=== PATIENT | male | born 1975 | race Hispanic/Latino ===

== ENCOUNTER 2017-12-11 20:29 | Emergency (ER) | payer OTHER, SELFPAY ==
[2017-12-11] MEDS ORDERED: Ketorolac Tromethamine 30 MG/ML VIAL ONE (21:32)
[2017-12-11] MEDS ORDERED: Ondansetron PF 4 MG/2 ML Vial ONE (21:32)
[2017-12-11 21:56] LABS: #Basophils 0.1 thou/uL (0.0-0.2); #Eosinphils 0.2 thou/uL (0.0-0.7); #Lymphocytes 2.6 thou/uL (1.20-3.40); #Monocytes 1.1 thou/uL (0.11-0.59); %Basophils 0.4 % (0.0-1.0); %Eosinophils 0.9 % (0.0-10.0); %Lymphocytes 15.5 % (21.0-51.0); %Monocytes 6.5 % (0.0-10.0); %Neutrophils 76.7 % (42.0-75.0); Mean Corpuscular HGB CONC 33.5 g/dL (32.0-36.0); Mean Corpuscular Hemoglobin 29.8 pg (27.0-31.0); Mean Corpuscular Volume 88.7 fL (78.0-98.0); Mean Platelet Volume 7.6 fL (7.4-10.4); Platelet Count 331 thou/uL (130-400); RBC Distribution Width 12.6 % (11.5-14.5); Red Blood Cell (RBC) Count 5.39 mill/uL (4.70-6.10)
[2017-12-11 22:29] LABS: ALT (SGPT) 33 U/L (8-55); AST (SGOT) 32 U/L (5-34); Albumin 4.2 g/dL (3.5-5.0); Alkaline Phosphatase 109 U/L (40-150); Anion Gap 12 mmol/L (10-20); BUN (Urea Nitrogen) 10 mg/dL (8.9-20.6); Bilirubin, Total 0.8 mg/dL (0.2-1.2); Calc. Creatinine Clearance 0 mL/min (70-130); Calcium 9.5 mg/dL (7.8-10.44); Carbon Dioxide 26 mmol/L (22-29); Chloride 100 mmol/L (98-107); Estimated GFR-MDRD 88; Globulin 4.1 g/dL (2.4-3.5); Glucose 88 mg/dL (70-105); Lipase 9 U/L (8-78); Potassium 4.9 mmol/L (3.5-5.1); Protein, Total 8.3 g/dL (6.0-8.3); Sodium 133 mmol/L (136-145)
[2017-12-11] MEDS ORDERED: metroNIDAZOLE 500 MG/100 ML BAG ONE (23:09)
[2017-12-11 23:45] LABS: Bilirubin Negative (Negative); Blood, Urine Negative (Negative); Clarity CLEAR (Clear); Glucose, Urine (Dipstick) Negative (Negative); Leukocyte Negative (Negative); Nitrite Negative (Negative); Protein, Urine (Dipstick) Negative (Neg-Trace); Specific Gravity, Urine 1.011 (1.002-1.036); Urobilinogen 0.2 mg/dL (0.2-1.0)
--- NOTE | 2017-12-12 13:54 | CT ---
NONCONTRAST CT ABDOMEN AND PELVIS: 12/11/17 HISTORY: Diffuse abdominal pain. Abdominal pain is greater on the left. History of kidney stones. COMPARISON: 09/24/15. FINDINGS: There is bibasilar atelectasis. Lack of intravenous contrast limits sensitivity for evaluation of the parenchymal organs. There is in creased density focus seen within the superior pole right kidney which may represent a cortically bas ed calcification. This is stable from prior exam. No additional renal or ureteral calculi are seen bi laterally and there is no evidence of hydronephrosis. The previously seen right UVJ calculus is no lo nger identified. The liver, spleen, pancreas, bilateral adrenal glands, and urinary bladder demonstrate a grossly norm al nonenhanced CT appearance. The appendix is visualized and normal in caliber. There is colonic diverticulosis involving the descending colon. There is a focal area of colonic wall thickening and associated pericolonic inflammatory changes involving the proximal descending colon l ikely attributable to diverticulitis. There is no free intraperitoneal gas seen and no fluid collecti on is identified to suggest an abscess. No other interval change. IMPRESSION: 1. Diverticulitis involving the sigmoid colon. However, followup evaluation is recommended to en sure resolution of the colonic wall thickening. 2. Cortically based calcification superior pole right kidney. No additional renal or ureteral ca lculi are seen bilaterally. 3. Above findings discussed with Dr. Mendoza in the Emergency Department on 12/11/17 at 2206 hours . POS: [facility]
== END 2017-12-12 01:10 | disposition home or self-care (01) ==
LOC: ERS 20:29 → UNDOADMIN 23:02 → ERHOLD 23:02 → ERS 23:23
DX: K57.32 Diverticulitis of large intestine without perforation or abscess without bleeding (principal); R11.0 Nausea
CPT/HCPCS: 74176; 80053; 81003; 83690; 85025; 96361; 96365; 96366; 96368; 96375; J1885; J1956; J2405

== ENCOUNTER 2018-09-12 08:01 | Outpatient (CLI) | payer OTHER ==
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
== END 2018-09-12 08:02 | disposition home or self-care (01) ==
LOC: BICMRI 08:01
PROVIDERS: ATTEND Family Medicine
DX: S59.901A Unspecified injury of right elbow, initial encounter (principal); S52.124A Nondisplaced fracture of head of right radius, initial encounter for closed fracture

== ENCOUNTER 2018-11-14 07:13 | Day surgery (SDC) | payer OTHER ==
[2018-11-13 11:42] VITALS: BMI 26.6
--- NOTE | 2018-11-13 11:48 | HP ---
HISTORY OF PRESENT ILLNESS: José Rouse is a 43-year-old male patient, who does mostly computer work, sells, presents with a 4 to 5-year history of umbilical hernia, enlarged and becoming more bothersome. He is referred by Dr. Barrientos. Plan is for robotic mesh repair under general anesthesia as outpatient. He understands the risks of infection, bleeding, reoperation, recurrence of the hernia, and consents. We will plan this as an outpatient. SOCIAL HISTORY: Tobacco, none. Alcohol, rarely. MEDICATIONS: None routinely. PAST SURGICAL AND MEDICAL HISTORY: Noncontributory. REVIEW OF SYSTEMS: Noncontributory. PHYSICAL EXAMINATION: VITAL SIGNS: Weight 199 pounds, height 5 feet 8 inches, BMI 28, blood pressure 130/85, pulse 82, temperature 98.6 degrees. HEAD, EARS, EYES, NOSE AND THROAT: Unremarkable. LUNGS: Clear to auscultation. CARDIAC: Regular rate and rhythm without murmur or gallop. ABDOMEN: Soft. Umbilical hernia, reducible, slightly tender. Abdomen is otherwise soft. EXTREMITIES: Unremarkable. NEUROLOGIC: Intact. ASSESSMENT AND PLAN: Umbilical hernia. Plan robot mesh repair as outpatient. He understands risks and benefits. Questions answered. Job ID: [id number]
[2018-11-14 08:04] LABS: #Eosinphils 0.4 thou/uL (0.0-0.7); #Lymphocytes 3.2 thou/uL (1.20-3.40); #Monocytes 0.7 thou/uL (0.11-0.59); #Neutrophils 4.7 thou/uL (1.40-6.50); %Basophils 0.5 % (0.0-1.0); %Lymphocytes 35.4 % (21.0-51.0); %Neutrophils 52.1 % (42.0-75.0); Hemoglobin 15.7 g/dL (14.0-18.0); Mean Corpuscular HGB CONC 34.9 g/dL (32.0-36.0); Mean Corpuscular Hemoglobin 30.9 pg (27.0-31.0); Mean Corpuscular Volume 88.3 fL (78.0-98.0); Mean Platelet Volume 7.7 fL (7.4-10.4); Platelet Count 310 thou/uL (130-400); RBC Distribution Width 12.6 % (11.5-14.5); Red Blood Cell (RBC) Count 5.09 mill/uL (4.70-6.10)
[2018-11-14 08:13] LABS: Anion Gap 12 mmol/L (10-20); BUN (Urea Nitrogen) 11 mg/dL (8.9-20.6); Calc. Creatinine Clearance 127 mL/min (70-130); Carbon Dioxide 25 mmol/L (22-29); Chloride 105 mmol/L (98-107); Estimated GFR-MDRD Greater than 90; Glucose 64 mg/dL (70-105); Potassium 3.2 mmol/L (3.5-5.1); Sodium 139 mmol/L (136-145)
[2018-11-14] MEDS ORDERED: Ketorolac Tromethamine 30 MG/ML VIAL ONE (08:16)
[2018-11-14] MEDS ORDERED: Bupivacaine/Epinephrine 0.25% 30 ML VIAL ONE (08:51)
[2018-11-14] MEDS ORDERED: Fentanyl 100 MCG/2 ML VIAL ONE ×3 (10:02→12:35)
[2018-11-14] MEDS ORDERED: HYDROcodone/Acetaminophen 5/325 mg Tablet ONE (13:27)
[2018-11-14] MEDS ORDERED: Promethazine HCl 25 MG/ML VIAL ONE (13:56)
[2018-11-14] MEDS ORDERED: Ondansetron ODT 4 MG TAB ONE (14:06)
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
[2018-11-14] MEDS ORDERED: Rocuronium Bromide 10 MG/ML (10ML VIAL) ONE (15:47)
[2018-11-14] MEDS ORDERED: Lidocaine 1% PF 5 ML VIAL ONE (15:47)
[2018-11-14] MEDS ORDERED: Ondansetron PF 4 MG/2 ML Vial ONE (15:47)
[2018-11-14] MEDS ORDERED: Glycopyrrolate 0.2 MG/ML 5 ML SYRINGE ONE (15:47)
[2018-11-14] MEDS ORDERED: PROPOFOL 200 MG/20 ML VIAL ONE (15:47)
== END 2018-11-14 14:35 | disposition home or self-care (01) ==
LOC: SDC 07:13
PROVIDERS: ATTEND Specialist
PROC: 0WUF4JZ Supplement Abdominal Wall with Synthetic Substitute, Percutaneous Endoscopic Approach (ICD-10-PCS; principal; 2018-11-14)
DX: K42.9 Umbilical hernia without obstruction or gangrene (principal)
CPT/HCPCS: 36415; 80048; 85025; C1781; J0131; J0690; J1885; J2001; J2405; J2550; J2704; J3010; Q0162

== ENCOUNTER 2023-02-21 12:52 | Outpatient (CLI) | payer OTHER | END 2023-02-21 12:53 | disposition home or self-care (01) | PROVIDERS: ATTEND Family Medicine | DX: R07.89 Other chest pain (principal) | CPT/HCPCS: 93017 ==